=== PATIENT | female | born 1995 | race African-American/Black ===

== ENCOUNTER 2019-07-02 20:26 | Emergency (ER) | payer OTHER ==
[2019-07-02 20:33] VITALS: BP 140/98
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
== END 2019-07-02 22:24 | disposition home or self-care (01) ==
LOC: ED 20:26
DX: H57.12 Ocular pain, left eye (principal); S05.92XA Unspecified injury of left eye and orbit, initial encounter; W20.8XXA Other cause of strike by thrown, projected or falling object, initial encounter
CPT/HCPCS: 99281; 99284

== ENCOUNTER 2019-12-24 17:31 | Outpatient (CLI) | payer OTHER | END 2019-12-24 17:32 | disposition critical access hospital (66) | LOC: EMS 17:31 | PROVIDERS: ATTEND Surgery | DX: M25.562 Pain in left knee (principal) | CPT/HCPCS: A0425; A0429 ==

== ENCOUNTER 2019-12-24 17:54 | Emergency (ER) | payer OTHER ==
[2019-12-24 18:07] VITALS: BP 118/97
[2019-12-24] MEDS: HYDROmorphone 1 MG/ML CARPUJECT IM STA ×2 (18:14→18:15)
--- NOTE | 2019-12-24 18:16 | ED Physician Documentation ---
History of Present Illness - Stated complaint Stated Complaint: GLF - Chief complaint Chief Complaint: Trauma Ext - History obtained from History obtained from: Patient - History of Present Illness Timing: Prior to arrival - Additonal information Additional information: 24-year-old female presents to the emergency department for evaluation of acute worsening left knee pain. She reports to me that last week she was jumping up into a truck and injured her left knee. She was seen by a provider in [place] and had an MRI of her knee that showed an ACL and meniscal tear. She was placed in crutches and knee immobilizer and advised to follow-up with her base physician. This afternoon as she was getting out of the shower she slipped falling onto the left knee and was unable to get up or bear weight on the leg. She presents here for reevaluation. On exam she is quite tender to touch of the knee. She will only minimally move it and has fairly extensive guarding with any palpation or passive range of motion Review of Systems Constitutional: reports: Reviewed and negative Nose: reports: Reviewed and negative Throat: reports: Reviewed and negative Cardiac: reports: Reviewed and negative Respiratory: reports: Reviewed and negative GI: reports: Reviewed and negative : reports: Reviewed and negative Skin: reports: Reviewed and negative Musculoskeletal: reports: Joint pain (left knee), Joint swelling (left knww) Neurologic: reports: Reviewed and negative PD PAST MEDICAL HISTORY - Past Medical History Past Medical History: Yes Cardiovascular: None Respiratory: None Endocrine/Autoimmune: None GI: None CHANNEL LAYER: None : None HEENT: None Psych: None Musculoskeletal: None Derm: None - Past Surgical History Past Surgical History: No - Allergies Allergies/Adverse Reactions: Allergies Allergy/AdvReac Type Severity Reaction Status Date / Time No Known Drug Allergies Allergy Verified 12/24/19 18:04 - Social History Does the pt smoke?: No Smoking Status: Never smoker Does the pt drink ETOH?: No Does the pt have substance abuse?: No - Immunizations Immunizations are current?: Yes - POLST Patient has POLST: No PD ED PE EXPANDED - General General: Alert, In Pain - Extremities Extremities: Left knee (tender to palpation and light tough medially. No tenderness at tibial or fibula head. Guarded and limited ROM secondary to pain) Results - Vitals Vitals: Vital Signs - 24 hr 12/24/19 18:04 Temperature 36.9 C Heart Rate 84 Respiratory 20 Rate Blood Pressure 118/97 H O2 Saturation 100 Oxygen O2 Source Room air - Rads (name of study) left knee Radiology: Final report received (Mall ossific density projecting within the intercondylar fossa likely representing an avulsion fragment either from the medial tibial spine versus the inferior medial margin of the patella.Mall ossific density projecting within the intercondylar fossa likely representing an avulsion fragment ) PD MEDICAL DECISION MAKING - ED course Complexity details: reviewed results, considered differential, d/w patient, d/w family ED course: 24-year-old female presents to the emergency department for evaluation of knee pain after she sells getting out of the shower this evening. This follows an ACL and meniscal tear after jumping into a truck 1 week ago. She did have an MRI completed at an outlying facility in [place]. On exam today she has significant tenderness just below the patella and limited range of motion. The x-ray does show an ossific density within the intercondylar fossa. This does likely represent the ACL tear that she had previously. She is scheduled to see orthopedics on Sunday. At this time we will place her in a knee immobilizer and give crutches and advised continue close follow-up with orthopedics for further imaging and evaluation Departure - Departure Disposition: Home, Self Care Clinical Impression: S/P ACL tear Left knee pain Qualifiers: Chronicity: acute Qualified Code(s): M25.562 - Pain in left knee Condition: Stable Record reviewed to determine appropriate education?: Yes Comments: Continue to follow-up with orthopedics as you are already scheduled. Continue to wear the knee immobilizer when out of bed until then. I do recommend that he continue to ice the knee and take the ibuprofen already prescribed. The orthopedics doctor will likely want to order additional imaging after evaluation.
[2019-12-24] MEDS ORDERED: HYDROcod/ACETAM 5/325 MG TABLET PO STA (18:19)
--- NOTE | 2019-12-24 18:51 | XRAY Report ---
PROCEDURE: Knee 3 View LT INDICATIONS: recent acl and meninscus tear, new fall; TECHNIQUE: 3 views of the left knee(s) were acquired. COMPARISON: None. FINDINGS: Bones: There is a small ossific density projecting adjacent to the medial tibial spine. The origin m ay be off the medial tibial spine versus the inferomedial margin of the patella. No fractures or disl ocations. No suspicious bony lesions. Soft tissues: There is a small suprapatellar joint effusion. No suspicious soft tissue calcification s. IMPRESSION: 1. Small ossific density projecting within the intercondylar fossa likely representing an avulsion fr agment either from the medial tibial spine versus the inferomedial margin of the patella. This is not seen on any other view to confirm. Consider nonemergent advanced imaging with CT to better delineate . 2. Small suprapatellar joint effusion. Reviewed by: Aidan Ramos MD on 12/24/2019 6:50 PM PDT Approved by: Aidan Ramos MD on 12/24/2019 6:50 PM PDT Station ID: [id number]
== END 2019-12-24 19:46 | disposition home or self-care (01) ==
LOC: EDUNIT# → ED 17:54
DX: S83.207A Unspecified tear of unspecified meniscus, current injury, left knee, initial encounter (principal); S83.512A Sprain of anterior cruciate ligament of left knee, initial encounter; W18.2XXA Fall in (into) shower or empty bathtub, initial encounter; Y93.E1 Activity, personal bathing and showering
CPT/HCPCS: 73562; 99283; 99284; A9270

== ENCOUNTER 2020-03-09 06:26 | Day surgery (SDC) | payer OTHER ==
[2020-03-09] MEDS ORDERED: LACTATED RINGERS 1,000 ML IV ONE ×2 (06:30→10:52)
[2020-03-09] MEDS ORDERED: ceFAZolin 2 GM/50 ML 2 GM/50 ML BAG IV ONE (06:30)
[2020-03-09 06:54] LABS: HCG UR QUAL NEGATIVE
[2020-03-09] MEDS ORDERED: LIDOCAINE-MPF 2% 5 ML VIAL ONE (07:06)
[2020-03-09] MEDS ORDERED: PROPOFOL 200 MG/20 ML VIAL IVP ONE (07:06)
[2020-03-09] MEDS ORDERED: ROPIVACAINE 0.5% PF 20 ML AMPULE ONE (07:07)
[2020-03-09] MEDS ORDERED: MIDAZOLAM 2 MG/2 ML VIAL ONE (07:08)
[2020-03-09] MEDS ORDERED: EPINEPHrine 1 MG/ML AMP ONE (07:16)
[2020-03-09] MEDS ORDERED: BUPIVACAINE 0.25% PF 30 ML VIAL ONE (07:16)
[2020-03-09] MEDS ORDERED: fentaNYL 100 MCG/2 ML VIAL ONE ×3 (07:50→11:21)
--- NOTE | 2020-03-09 08:06 | ANESTHESIA ---
Pre-Anesthesia VS, & Labs - Diagnosis Left ACL Tear - Procedure Left ACL Repair Vital Signs: Temp Pulse Resp BP Pulse Ox 36.2 C L 93 12 116/83 H 99 03/09/20 06:30 03/09/20 06:30 03/09/20 06:30 03/09/20 06:30 03/09/20 06:30 Height: 5 ft 3 in Weight (kg): 97.52 kg Body Mass Index: 38.0 BMI Classification: Obese - NPO >8 hours - Is Patient ?: No Home Medications and Allergies Home Medications: Ambulatory Orders No Known Home Medications 03/03/20 No Known Home Medications 03/03/20 Allergies/Adverse Reactions: Allergies Allergy/AdvReac Type Severity Reaction Status Date / Time No Known Drug Allergies Allergy Verified 03/03/20 13:52 Anes History & Medical History - Anesthetic History Anesthesia Complications: reports: No previous complications Family history of Anesthesia Complications: Denies - Medical History Cardiovascular: reports: None Pulmonary: reports: Emphysema Gastrointestinal: reports: None Urinary: reports: None Musculoskeletal: reports: Other Endocrine/Autoimmune: reports: None Blood Disorders: reports: None Skin: reports: None Smoking Status: Never smoker Exam General: Alert, Oriented x3, Cooperative, No acute distress Dental: WNL Mouth Opening: Greater than 4 Fingerbreadths Neck Mobility: Normal Mallampati classification: II Respiratory: Lungs clear Cardiovascular: Regular rate Abdomen: Normal bowel sounds, Soft, No tenderness, No hepatospenomegaly, No masses Mental/Cognitive Status: Alert/Oriented X3, Normal for patient Cognitive Status: Within normal limits Plan Anesthesia Type: General, Adductor Block Regional Block: Per Surgeon's request for Post Op pain control Consent for Procedure(s) Verified and Reviewed: Yes Code Status: Attempt Resuscitation ASA classification: 2-Mild systemic disease Is this case an emergency?: No
[2020-03-09] MEDS ORDERED: NALOXONE 0.4 MG/ML VIAL IVP PRN (08:07)
[2020-03-09] MEDS ORDERED: METOCLOPRAMIDE 10 MG/2 ML VIAL IVP PRN (08:07)
[2020-03-09] MEDS ORDERED: ACETAMINOPHEN 1,000 MG/100 ML 100 ML IV ONE (08:07)
[2020-03-09] MEDS ORDERED: ATROPINE ABBOJECT 1 MG/10 ML SYRINGE IVP PRN (08:07)
[2020-03-09] MEDS ORDERED: ONDANSETRON 4 MG/2 ML VIAL IVP PRN ×2 (08:07→11:13)
[2020-03-09] MEDS ORDERED: ePHEDrine 50 MG/ML VIAL IVP PRN (08:07)
[2020-03-09] MEDS ORDERED: MORPHINE 2 MG/ML CARPUJECT IVP PRN (08:07)
[2020-03-09] MEDS ORDERED: BUPIVACAINE 0.25% PF 30 ML VIAL SUBQ ONE (08:10)
[2020-03-09] MEDS ORDERED: EPINEPHrine 1 MG/ML AMP IR ONE (08:10)
[2020-03-09] MEDS ORDERED: DEXAMETHASONE 4 MG/ML VIAL ONE (08:13)
[2020-03-09] MEDS ORDERED: ONDANSETRON 4 MG/2 ML VIAL ONE ×2 (08:13→11:07)
[2020-03-09] MEDS ORDERED: HYDROmorphone 1 MG/ML CARPUJECT ONE ×2 (08:29→11:07)
[2020-03-09] MEDS ORDERED: SODIUM CHLORIDE 0.9% 10 ML ONE (08:51)
[2020-03-09] MEDS ORDERED: BACITRACIN 50,000 UNIT VIAL ONE (08:51)
[2020-03-09] MEDS ORDERED: BACITRACIN 50,000 UNIT VIAL IM ONE (08:59)
[2020-03-09] MEDS ORDERED: LACTATED RINGERS 1,000 ML IV SCH (09:00)
[2020-03-09] MEDS ORDERED: KETOROLAC 30 MG/ML VIAL ONE (10:21)
[2020-03-09] MEDS: HYDROmorphone 0.5 MG/0.5 ML SYRINGE IVP PRN ×2 (10:57→11:05)
[2020-03-09] MEDS: fentaNYL 100 MCG/2 ML VIAL IVP PRN ×2 (11:12→11:17)
[2020-03-09] MEDS ORDERED: oxyCODONE 5 MG TABLET PO PRN (11:13)
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
[2020-03-09 12:00] VITALS: BP 110/95
[2020-03-09] MEDS ORDERED: oxyCODONE 5 MG TABLET ONE (12:06)
--- NOTE | 2020-03-09 12:17 | ANESTHESIA POST OP EVALUATION ---
Anesthesia Post Eval - Post Anesthesia Eval Vitals: Last Vital Signs Temp 36.0 C L 03/09/20 11:59 Pulse 74 03/09/20 11:59 Resp 14 03/09/20 11:59 BP 110/95 H 03/09/20 11:59 Pulse Ox 99 03/09/20 11:59 CV Function Including HR & BP: positive: Stable Pain Control: positive: Satisfactory Nausea & Vomiting: positive: Negative Mental Status: positive: Baseline Respiratory Status: Airway Patent Hydration Status: Satisfactory Anesthesia Complications: positive: None
== END 2020-03-09 06:27 | disposition home or self-care (01) ==
LOC: SDS 06:26
PROVIDERS: ATTEND Orthopaedic Surgery
DX: S83.512A Sprain of anterior cruciate ligament of left knee, initial encounter (principal); S83.282A Other tear of lateral meniscus, current injury, left knee, initial encounter; X50.1XXA Overexertion from prolonged static or awkward postures, initial encounter; E66.9 Obesity, unspecified; Z68.38 Body mass index [BMI] 38.0-38.9, adult
CPT/HCPCS: 29881; 29888; 81025; A9270; C1713; C1762; J0690; J1170; J7120